=== PATIENT | female | born 1965 | race Caucasian/White ===

== ENCOUNTER → 2022-04-09 | Outpatient (CLI) | payer OTHER, SELFPAY ==
--- NOTE | 2022-04-09 07:59 | CT_ITS ---
STUDY: CT CHEST WITH CONTRAST REASON FOR EXAM: Female, 56 years old. Follow up treated right breast cancer -- prior infraclavicular adenopathy. Prior chemotherapy and radiation treatment and breast reduction surgery. RADIATION DOSAGE (If Supplied By Facility): CTDIvol = ( 13.55 ) mGy, DLP = ( 608.83 ) mGycm TECHNIQUE: Transaxial imaging was performed pre and post intravenous administration of IV 100mL Isovue-370. Multiplanar coronal and sagittal images were reformatted. Individualized dose optimization techniques were used for this CT. COMPARISON: Comparison is made with prior examination dated 08/13/2021. FINDINGS: CHEST Right breast skin thickening. Mild degree of increased markings in the peripheral aspect of the right middle lobe suggestive of possible post radiation fibrosis. Calcified granuloma in the posterior medial segment of the left lower lobe. There is no demonstrated pleural abnormality. Normal heart and pericardium. Normal mediastinum. Calcified right hilar lymph nodes. Normal unenhanced pulmonary arteries. Normal aorta arch and descending thoracic aorta. There are multi-level degenerative changes of the thoracic spine. Fatty infiltration of the liver. Calcified splenic granulomas. 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 Electronically Signed: Darryl Antonio MD at 10:55 EST ,
== END | disposition home or self-care (01) ==
PROVIDERS: PCP Internal Medicine; Visit Provider Student in an Organized Health Care Education/Training Program
DX: C50.911 Malignant neoplasm of unspecified site of right female breast (principal); C77.3 Secondary and unspecified malignant neoplasm of axilla and upper limb lymph nodes
CPT/HCPCS: 71260; Q9967

== ENCOUNTER 2022-11-13 10:00 | Outpatient (RCR) | payer OTHER, SELFPAY ==
--- NOTE | 2022-11-06 11:42 | HP.OTEVAL_ITS ---
Patient's Visit Information Visit Information Visit Information: YOVANI SAUCEDA is a 57 year old F, referred to Occupational Therapy by Dr. Pranay Sales DO, with a diagnosis of Malignant neoplasm r female breast, neoplasm axilla and upper limb. Date of Evaluation: 11/06/22 Occupational Therapist: Luz Elena Suh, SKYLA/Marlena, CHT Subjective Subjective: Last year complete December 2020 to Dec 2021 had radiation and chemo. Pt had 4 lymph nodes on right side between rib cage and posterior scap removed in October 2021. Pt just moved [place] with some of sons throughout. Pt tired and fatigued since treatment. Pt reports medication AP - has wiped and she was allergic to it Pt is R hand dominant. Pt reports some stiffness in R arm post treatment. 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 Shoulder: right 52/155 left 65/155 Strength Podiatric Foot And Ankle Specialist: R 65# L 61# Lymphedema (Circumferential Measure) MCP: right 18.5 cm left 17.5 cm Wrist: right 16 cm left 15 cm Lower forearm: right 18.5 cm left 17.5 cm Largest forearm: right 27.5 cm left 27 cm Elbow: right 27.5 cm left 26.5 cm Largest humerus: right 34 cm left 34.5 cm Axcillary: right 47 cm left 46 cm Upper Exremity Comments: Some tightness in RUE versus LUE latency stage ( risk only) Sensation Sensation Comments: denies changes Quick DASH-Disab of Arm,Shoulder& Hand Quick DASH Score: 13.6350 Goals Goal: Patient will demonstrate adequate knowledge of self-massage by the end of the second week.: Yes Goal: Patient will demonstrate adequate knowledge of skin care and precautions by the end of the first week.: Yes Goal: Patient will demonstrate adequate knowledge of therapeutic exercises by discharge.: Yes Rehabilitation General Assessment: Pt seen for OT lymphedema eval. Pt presents with some skin tightness in RUE with 1 cm-.5cm difference between right and left arm. Pt is not limited in ADL tasks at this time, though demonstrates decreased awareness of lymphedema. Pt will benefit from 1-2 more visits of skilled OT for increased understanding of self lymph massage and management of lymphedema. Therapist ed and provided handouts for Lymph stimi UE exercises and self-lymph massage, and OT POC. Pt verbalizes understanding and agrees to OT POC. Therapy session was directly supervised and doc. approved by Luz Elena Suh OTR/Marlena,CHT. Rehabilitation Potential: Excellent Anticipated Interventions Anticipated Interventions: Education re Diagnosis, Education re Life-long lymphedema Management, Education re Skin Care and Precautions, Education re Self Massage Techniques and Home Program Visit Plan Frequency: 1-2 more treatments General Plan: Review and ensure proper follow through of managing lymphedema TEXT: Thank you for the opportunity to evaluate your patient. For Medicare and Medicare HMO plans, please review the plan of care and approve it. It will need to be FAXED BACK to us at [phone] for Medicare purposes. Please let me know if there are questions or concerns regarding this plan of care. Physician Signature: Date:
--- NOTE | 2022-11-17 13:53 | HP.OTDCSUM ---
Discharge Summary D/C Summary: It has been my pleasure to treat YOVAIN SAUCEDA under orders from Dr. Pranay Sales DO, for the diagnosis of Malignant neoplasm r female breast, neoplasm axilla and upper limb for a total of 2 visit(s). Please see the following information for a summary of their discharge status. Overall Improvement % Improvement: 70 Objective Objective/Function: Right Edema (cm): MCP 19.5 Wrist 15.5 Lower forearm 19 Largest forearm 26 Elbow 25.5 Humerus 33.5 Axillary 47 pt verbalizes understanding of her HEP including signs and symptoms of lymphedema. pt agrees with D/C Goals Patient Goals: Learn to Manage Lymphedema and Learn how to Manage Lymphedema Goal: Patient will demonstrate adequate knowledge of self-massage by the end of the second week.: Yes Goal: Patient will demonstrate adequate knowledge of skin care and precautions by the end of the first week.: Yes Goal: Patient will demonstrate adequate knowledge of therapeutic exercises by discharge.: Yes Plan Plan: Will not continue to see pt at this time. Pt instructed to reach out if she had any questions regarding care. D/C Information Discharge Comments: Pt demo understanding of lymphedema signs/symptoms . pt demo understanding of lymph stimulation ex, and self manual lymph massage. pt agrees with D.C. d/c sentence: If there are questions or concerns regarding this patient's occupational therapy, please fell free to call me at [phone]. Thank you for the referral of this patient. Sincerely, Luz Elena Suh, OTR/L, CHT
== END 2022-11-13 19:00 | disposition home or self-care (01) ==
LOC: OT 10:00
PROVIDERS: PCP Internal Medicine; Referring Provider Student in an Organized Health Care Education/Training Program; Visit Provider Student in an Organized Health Care Education/Training Program
DX: C50.911 Malignant neoplasm of unspecified site of right female breast (principal); C77.3 Secondary and unspecified malignant neoplasm of axilla and upper limb lymph nodes
CPT/HCPCS: 96365; 96366; 96375; 97166; 97530; 99221; G0378

== ENCOUNTER 2024-06-04 07:46 | Emergency (ER) | payer OTHER, SELFPAY ==
[2024-06-04 07:47] VITALS: BP 159/86; PULSE 70; RESP 16; TEMP 36.6; O2SAT 99; BMI 39.5
--- NOTE | 2024-06-04 07:51 | EKG12_ITS ---
Test Reason : PALPS Blood Pressure : */* mmHG Vent. Rate : 69 BPM Atrial Rate : 69 BPM P-R Int : 138 ms QRS Dur : 90 ms QT Int : 428 ms P-R-T Axes : 63 46 82 degrees QTcB Int : 458 ms Normal sinus rhythm Nonspecific ST and T wave abnormality Abnormal ECG Confirmed by ALDO DE LA CRUZ, ELMER ([id number]), advertising editor JOSH FAUST ([id number]) on 06/08/2024 12:54:05 PM Referred By: MIKEY Confirmed By: ELMER CARLSON MD
--- NOTE | 2024-06-04 07:57 | ED.VIS.CHEST ---
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 Patient states that this has been going on for several months but feels like it has been increasing in intensity. She states that she did call her primary care physician about this and they stated that come back in 6 months and if things were not getting better they would put her on monitor. Patient states that she was going to work today and noted that she had the symptoms again and noted that they lasted a little bit longer than normal. She states that she has been taking her medication as prescribed. She states that she does not believe that her thyroid has been checked in a while. She states that her symptoms do worsen when she lies down. She states that she does not develop any chest pain or shortness of breath with this. [facility] Medical History Cellulitis Hypothyroid Hypercholesteremia Carcinoma of right breast metastatic to axillary lymph node Asthma Home Medications ?Medication ?Instructions ?Recorded ?Last Taken ?Type albuterol sulfate 90 mcg/actuation 2 puff inhalation Q6H PRN 08/07/21 Unknown History aerosol inhaler epinephrine 0.3 mg/0.3 mL 0.3 mg IM ONCE 08/07/21 Unknown History injection, auto-injector multivitamin 1 tab PO DAILY 08/07/21 Unknown History levothyroxine 100 mcg capsule 100 mcg PO DAILY 06/29/22 Unknown History Allergy/AdvReac Type Severity Reaction Status Date / Time carboplatin Allergy Severe Anaphylaxis Verified 06/04/24 07:49 cranberry Allergy Severe Anaphylaxis Verified 06/04/24 07:49 latex Allergy Severe Itching Verified 06/04/24 07:49 Family History Mother Pancreatic cancer, Onset Age: 73 Father Prostate cancer, Onset Age: 74 Grandmother Esophageal cancer, Onset Age: 71 Grandfather Colon cancer, Onset Age: 59 maternal Grandmother Cancer, Onset Age: 67 possibly Hodgkins Unknown Breast cancer half niece Surgical History History of right breast biopsy History of bunionectomy History of hysterectomy History of appendectomy History of bilateral breast reduction surgery History of lymph node biopsy Social History household members: spouse current occupational status: unemployed Smoking Status: Never smoker alcohol intake: never substance use type: does not use caffeine: Yes Type: carbonated beverages Number of servings: 1 ROS ROS ED ROS Narrative Constitutional: Denies fevers, chills, headaches, lightness, dizziness Eyes: Denies change in vision double vision blurry vision Cardiovascular: Complains of palpitations as noted above denies chest pain Respiratory: Denies cough or wheezing shortness of breath Abdomen: Denies abdominal pain nausea vomit diarrhea : Denies any urinary symptoms Neurological: Denies numbness, weakness, tingling Musculoskeletal: Denies back pain Skin: Denies rashes or lesions EXAM Physical Exam Narrative Exam Narrative: General: Patient was lying in bed rest comfortably did not appear to be in acute distress Head: Atraumatic, normocephalic Eyes: PERRL bilaterally, EOMI bilateral, no conjunctival injection noted Neck: Soft, supple and trachea midline Cardiovascular: Regular rate and rhythm no murmurs gallops rubs noted Respiratory: Clear to auscultation bilaterally Abdomen: Soft, nondistended, nontender to palpation Extremities: +5/5 strength noted in the bilateral upper and lower extremity, radial pulse +2/4 in the bilateral extremities, no pedal edema on exam, Neurological: Patient following commands knew that she was at [facility] years 2024 Skin: Warm, dry, intact no rashes or lesions noted Const Vital Signs: 06/04/24 07:47 06/04/24 07:51 06/04/24 07:58 Temperature 98 F Temperature Source Oral Pulse Rate 70 Respiratory Rate 16 Respiratory Effort Normal Non-Labored Blood Pressure 159/86 H Blood Pressure Mean 110 Pulse Ox 99 Oxygen Delivery Method Room Air Room Air 06/04/24 10:15 06/04/24 11:18 Temperature Temperature Source Pulse Rate 65 56 L Respiratory Rate 18 15 Respiratory Effort Blood Pressure 138/80 H 135/82 H Blood Pressure Mean 99 99 Pulse Ox 97 96 Oxygen Delivery Method Room Air Room Air MDM MDM MDM Narrative Medical decision making narrative: Patient is a 58-year-old female who presented to the emergency department the chief complaint of palpitations. On the differential diagnosis includes but limited to cardiac arrhythmia, electrolyte abnormality, hyperthyroidism. Once workup is obtained reviewed she will be reevaluated. Patient's EKG was reviewed and showed sinus rhythm with a rate of 69 bpm MO interval was 138, QTc of 458. Patient's CBC reviewed and showed no evidence leukocytosis white blood count normal 5.9, hemoglobin 13, sodium normal 137, Tessman 3.9, creatinine was 0.87. Patient's troponin was less than 6 with a delta troponin obtained at 7. Patient TSH normal at 2.36 with a free T4 and T3 of 1.60 and 2.3 respectively. Patient's chest x-ray reviewed by myself by radiology showed no acute cardiopulmonary processes. On reevaluation patient she is feeling better she would like to go home at this point in time. Patient will be given a Holter monitor and she was advised to follow-up with her primary care physician outpatient setting. She is advised return with worsening symptoms or concerns. Once again this has been going on for months now. Lab Data Labs: Laboratory Results - last 24 hr 06/04/24 06/04/24 08:12 10:15 WBC 5.9 RBC 4.50 Hgb 13.0 Hct 39.6 MCV 88.0 MCH 28.9 MCHC 32.8 RDW Std Deviation 42.7 RDW Coeff of Radha 13.1 Plt Count MPV 10.8 Immature Gran % (Auto) 0.300 Neut % (Auto) 67.1 Lymph % (Auto) 22.2 Elliott % (Auto) 7.0 Eos % (Auto) 2.4 Baso % (Auto) 1.0 Absolute Neuts (auto) 3.9 Absolute Lymphs (auto) 1.30 Nucleated RBC % 0 Platelet Estimate SLT DEC Sodium 137 Potassium 3.9 Chloride 103 Carbon Dioxide 20.8 L Anion Gap 13 BUN 14 Creatinine 0.87 Estim Creat Clear Calc 81.02 Est GFR (MDRD) Non-Af 78 BUN/Creatinine Ratio 15.8 Glucose 116 H Calcium 9.3 Troponin T High Sens < 6 Troponin T Hi Sens 2 Hr 7 TSH 2.360 Free T4 1.60 H Free T3 pg/dL 2.3 Radiography Diagnostic Testing: Clinical Impression(s) from Imaging Studies Chest X-Ray 06/04/24 08:24 IMPRESSION: No radiographic evidence of acute cardiopulmonary disease. Reading Location: [address] Discharge Plan Triage Chief Complaint: Palpitations ED Provider: Daniel De La Garza Dx/Rx/DC Orders Clinical Impression: Heart palpitations Prescriptions: No Action multivitamin Tablet 1 tab PO DAILY albuterol sulfate 90 mcg/actuation HFA aerosol inhaler 2 puff inhalation Q6H PRN epinephrine 0.3 mg/0.3 mL auto-injector 0.3 mg IM ONCE Rx Instructions: as a single dose; may repeat once levothyroxine 100 mcg capsule 100 mcg PO DAILY Primary Care Provider: Rocio Li Referrals: Rocio Li MD [Primary Care Provider] - Activity Restrictions/Additional Instructions: Wear Holter monitor as prescribed. Follow-up your doctor in outpatient setting. Return with worsening symptoms or concerns. Your heart enzymes were normal your chest x-ray was normal and your thyroid was normal. Print Language: Romanian Disposition Disposition: Home, Self Care
[2024-06-04 08:19] LABS: Absolute Neutrophil Count 3.9 X10^3/uL (2.0-7.7); Basophil# 0.06 X10^3/uL; Eosinophil# 0.14 X10^3/uL; Eosinophils% 2.4 % (0-5); Hematocrit 39.6 % (37-47); Lymphocyte % 22.2 % (19-41); Mean Corp Hgb Conc 32.8 g/dL (32-36); Mean Corpuscular Hgb 28.9 pg (27.0-32.0); Mean Platelet Vol. 10.8 fl (6.2-12.0); Monocyte# 0.41 X10^3/uL; NRBC Flagged by Analyzer 0 % (0-5); Neutrophil # 3.92 X10^3/uL (2.7-7.7); Neutrophil % 67.1 % (47-70); POSITIVE COUNT YES; RBC Distribution Width CV 13.1 % (11.6-14.6); RBC Distribution Width SD 42.7 fl (35.1-43.9); White Blood Count 5.9 K/mm3 (4.4-11.0)
--- NOTE | 2024-06-04 08:24 | RAD_ITS ---
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 TECHNIQUE: PA and lateral views of the chest obtained. FINDINGS: Right breast surgical clips are noted. The cardiac silhouette is not enlarged. No evidence of pulmonary edema. No pulmonary parenchymal consolidative opacities. No pneumothorax or significant pleural effusion. [id number] thoracic spine degenerative changes are seen, also involving the visualized lower cervical spine. No acute osseous abnormality is identified. RAD/Chest PA and Lateral IMPRESSION: No radiographic evidence of acute cardiopulmonary disease. Reading Location: [id number]
[2024-06-04 08:43] LABS: Free T3 2.3 pg/mL (2.18-3.98); Troponin T High Sensitivity < 6 ng/L (<=14)
[2024-06-04 08:45] LABS: Anion Gap 13 (5-15); BUN 14 mg/dL (4-19); BUN/Creat Ratio 15.8 RATIO (10-20); Calcium,Total 9.3 mg/dL (7.6-11.0); Carbon Dioxide 20.8 mmol/L (21.0-32.0); Chloride 103 mmol/L (98-108); Creatinine, Serum 0.87 mg/dL (0.70-1.20); Differential Indicated SCAN CRITERIA MET; EST Glomerular Filtration Rate 78 (>60); Estimated Creatinine Clearance 81.02 ml/min (50-250); Glucose 116 mg/dL (70-99); Potassium 3.9 mmol/L (3.3-5.1); Sodium Level 137 mmol/L (133-145)
[2024-06-04 08:46] LABS: Platelet Estimate SLT DEC (ADEQ)
[2024-06-04 10:15] VITALS: BP 138/80; PULSE 65; RESP 18; O2SAT 97
[2024-06-04 10:45] LABS: Troponin T High Sens 2 HR 7 ng/L (<=14)
[2024-06-04 11:18] VITALS: BP 135/82; PULSE 56; RESP 15; O2SAT 96
[2024-06-04 11:33] VITALS: BP 131/76; PULSE 60; RESP 15; TEMP 36.6; O2SAT 97
== END 2024-06-04 12:01 | disposition home or self-care (01) ==
PROVIDERS: Emergency Provider Emergency Medicine; PCP Internal Medicine; Visit Provider Emergency Medicine
DX: R00.2 Palpitations (principal); E78.00 Pure hypercholesterolemia, unspecified; E03.9 Hypothyroidism, unspecified; Z90.710 Acquired absence of both cervix and uterus; J45.909 Unspecified asthma, uncomplicated; Z85.3 Personal history of malignant neoplasm of breast
CPT/HCPCS: 71046; 80048; 84439; 84443; 84481; 84484; 85025; 93005; 93225; 93226; 99283

== ENCOUNTER → 2024-06-04 | Outpatient (CLI) | payer OTHER, SELFPAY | END | disposition home or self-care (01) | LOC: CVS 11:29 | PROVIDERS: PCP Internal Medicine; Visit Provider Emergency Medicine | DX: R00.2 Palpitations (principal) | CPT/HCPCS: 93225; 93226 ==

== ENCOUNTER 2024-06-20 13:38 | Emergency (ER) | payer OTHER, SELFPAY ==
[2024-06-20 13:39] VITALS: BP 164/76; PULSE 65; RESP 16; TEMP 36.4; O2SAT 98; BMI 39.4
--- NOTE | 2024-06-20 14:12 | EX.ED.DYSGE1 ---
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 Asthma Home Medications ?Medication ?Instructions ?Recorded ?Last Taken ?Type albuterol sulfate 90 mcg/actuation 2 puff inhalation Q6H PRN 08/07/21 Unknown History aerosol inhaler epinephrine 0.3 mg/0.3 mL 0.3 mg IM ONCE 08/07/21 Unknown History injection, auto-injector multivitamin 1 tab PO DAILY 08/07/21 Unknown History levothyroxine 100 mcg capsule 100 mcg PO DAILY 06/29/22 Unknown History Allergy/AdvReac Type Severity Reaction Status Date / Time carboplatin Allergy Severe Anaphylaxis Verified 06/04/24 07:49 cranberry Allergy Severe Anaphylaxis Verified 06/04/24 07:49 latex Allergy Severe Itching Verified 06/04/24 07:49 Family History Mother Pancreatic cancer, Onset Age: 73 Father Prostate cancer, Onset Age: 74 Grandmother Esophageal cancer, Onset Age: 71 Grandfather Colon cancer, Onset Age: 59 maternal Grandmother Cancer, Onset Age: 67 possibly Hodgkins Unknown Breast cancer half niece Surgical History History of right breast biopsy History of bunionectomy History of hysterectomy History of appendectomy History of bilateral breast reduction surgery History of lymph node biopsy Social History household members: spouse current occupational status: unemployed Smoking Status: Never smoker alcohol intake: never substance use type: does not use caffeine: Yes Type: carbonated beverages Number of servings: 1 EXAM Physical Exam Const Vital Signs: 06/20/24 13:39 06/20/24 15:38 06/20/24 17:00 Temperature 97.5 F L Temperature Source Oral Pulse Rate 65 64 61 Respiratory Rate 16 18 20 H Blood Pressure 164/76 H 117/78 119/78 Blood Pressure Mean 105 91 91 Pulse Ox 98 98 99 Oxygen Delivery Method Room Air Room Air Room Air 06/20/24 18:25 Temperature 98.7 F Temperature Source Pulse Rate 61 Respiratory Rate 18 Blood Pressure 119/78 Blood Pressure Mean 91 Pulse Ox 99 Oxygen Delivery [place] [facility] [place] Medical decision making narrative: HISTORY OF PRESENT ILLNESS: Chief complaint: Dizziness 58-year-old female presents with concern for dizziness. Notes has been going on all day. She further states she has had months of intermittent dizziness. No provoking event endorsed. Notes last several weeks has been getting worse. Today especially. 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 She did not actually pass out. Denies any prodromal headache, chest pain, shortness of breath, palpitations. She notes she did have a cardiac event monitor recently which showed ectopic beats. REVIEW OF SYSTEMS: Pertinent positives: Dizziness Pertinent negatives: Chest pain PHYSICAL EXAM: Nursing triage notes reviewed, Vital signs reviewed Constitutional: please see [facility] HENT: MMM Eyes: Pupils equal round and reactive to light, Extraocular muscles intact Neck: No stridor, no JVD, full neck ROM Lungs: Clear to auscultation, No wheezing or rales. No increased work of breathing, no conversational dyspnea, no accessory muscle use, no nasal flaring. No respiratory distress noted Heart: Regular rate and rhythm, No murmurs, No rubs and No gallops, 2+ distal pulses (radial, femoral, posterior tibial) in all extremities Abdomen: Soft, there is no tenderness, rigidity, rebound or guarding, no obvious peritoneal signs, no palpable pulsatile abdominal masses, no auscultated abdominal bruit : No CVAT Extremities: No edema Neuro: No new focal neurological deficits, cranial nerves II through XII intact, 5/5 strength in all present extremities. Intact sensation to light touch in all present extremities, 2+ reflexes bilateral patella tendons. Skin: No rash or lesions noted MEDICAL DECISION MAKING: Chief Complaint: please see HPI External records reviewed: Reviewed prior imaging studies. Reviewed Holter monitor report from May 2024 which showed 16 supraventricular ectopic beats. No ventricular ectopic beats. The patient kept a diary which was correlated to normal sinus rhythm or sinus tachycardia Factors affecting care: hypothyroidism, breast cancer Social determinants of health: none History obtained from others: none Consults: none [facility] Narrative: The patient was initially hemodynamically stable, afebrile and nontoxic-appearing. Exam without focal cardiopulmonary abnormalities. I considered the following differential diagnosis: ACS, arrhythmia, CVA, anemia, electrolyte disturbance, dehydration, vertigo I obtained a broad lab and imaging workup to further elucidate the etiology of the patient's complaint ALL IMAGES (IF OBTAINED) HAVE BEEN PERSONALLY REVIEWED AND INTERPRETED BY MYSELF. Normal sinus rhythm rate of 65, normal axis, normal intervals, no STEMI CBC without leukocytosis, severe anemia, no thrombocytopenia. TSH within normal limits, free T3 within normal limits suggesting no significant thyroid pathology. T4 slightly elevated High-sensitivity troponin is negative, no evidence of myocardial ischemia CT scan of the brain shows no acute intracranial normality I have personally reviewed the patient's chest x-ray. Chest x-ray is unremarkable for pulmonary edema, pneumothorax, pneumonia or focal cardiopulmonary abnormality. CMP without evidence of acute kidney injury, significant electrolyte abnormality, anion gap to suggest end organ hypo-perfusion, no evidence of metabolic acidosis with a normal bicarbonate, no evidence of hepatobiliary obstructive pathology. I have personally reviewed the patient's chest x-ray. Chest x-ray is unremarkable for pulmonary edema, pneumothorax, pneumonia or focal cardiopulmonary abnormality. The synthesis of the patient's history, physical exam, labs images suggest no acute life or limb threat etiology. She is likely suffering from supraventricular ectopic beats versus sinus tachycardia based on her prior Holter monitor report. Encouraged her to follow with her primary care physician/cardiology for further outpatient evaluation. Encouraged increased p.o. intake. Encouraged decreasing stimulants. The patient and/or family, caregivers express understanding. The patient and/or family, caregivers agrees with the plan. Shared decision making: I will have a discussion with the patient and or visitors regarding risk/benefits of further testing or admission. They will be made aware of of the risk/benefits inherent in this decision they will be given the opportunity to voice understanding. Total critical care time today provided was at least 0 minutes. This excludes separately billable procedures. Critical care time (if documented) is secondary to the patient having high probability of clinically significant/life threatening deterioration in the patient's condition which required my urgent intervention. Impression: 1. Dizziness 2. Palpitations Dispo: Discharge home This note was generated with [employer] dictation software. It may contain incorrect words, spelling, and punctuation that were not noted in review of the chart prior to signing. Lab Data Labs: Laboratory Results - last 24 hr 06/20/24 06/20/24 06/20/24 14:30 14:50 16:30 WBC 6.7 RBC 4.75 Hgb 13.9 Hct 41.3 MCV 86.9 MCH 29.3 MCHC 33.7 RDW Std Deviation 41.5 RDW Coeff of Radha 13.2 Plt Count 237 MPV 9.7 Sodium 138 Potassium 3.9 Chloride 102 Carbon Dioxide 25.4 Anion Gap 11 BUN 14 Creatinine 0.72 Estim Creat Clear Calc 97.78 Est GFR (MDRD) Non-Af 97 BUN/Creatinine Ratio 19.1 Glucose 94 Calcium 9.7 Total Bilirubin 0.32 AST 21 ALT 17 Alkaline Phosphatase 74 Troponin T High Sens 6 Total Protein 7.3 Albumin 4.3 Globulin 3.0 Albumin/Globulin Ratio 1.4 TSH 1.450 Free T4 1.50 H Free T3 pg/dL 2.4 Urine Color Yellow Urine Clarity Clear Urine pH 6.5 Ur Specific [place] 1.010 Urine Protein Negative Urine Glucose (UA) Normal Urine Ketones Negative Urine Occult Blood Negative Urine Nitrite Negative Urine Bilirubin Negative Urine Urobilinogen Normal Ur Leukocyte Esterase 25 H Urine RBC 0 SEEN Urine WBC 0-5 SEEN Ur Squamous Epith Cells 0-5 SEEN Urine Bacteria RARE Urine Mucus 0 SEEN Radiography Diagnostic Testing: Clinical Impression(s) from Imaging Studies Brain CT 06/20/24 14:36 IMPRESSION: No acute intracranial abnormality. Reading Location: [facility] Chest X-Ray 06/20/24 14:36 IMPRESSION: No Acute Findings. Reading Location: [facility] Discharge Plan Triage Chief Complaint: Dizziness ED Provider: Nikolay Briggs Dx/Rx/DC Orders Instructions: ED Dizziness, Uncertain Cause, ED Tachycardia: PAT Prescriptions: No Action multivitamin Tablet 1 tab PO DAILY albuterol sulfate 90 mcg/actuation HFA aerosol inhaler 2 puff inhalation Q6H PRN epinephrine 0.3 mg/0.3 mL auto-injector 0.3 mg IM ONCE Rx Instructions: as a single dose; may repeat once levothyroxine 100 mcg capsule 100 mcg PO DAILY Primary Care Provider: Rocio Li Referrals: Rocio Li MD [Primary Care Provider] - Activity Restrictions/Additional Instructions: Thank you for trusting us with your care today! Your labs images were reassuring. Specifically no sign of damage to your heart, septic electrolyte abnormalities, thyroid dysfunction, lung abnormalities, abnormalities of your brain, significant anemia, dehydration, liver abnormalities, urinary abnormalities. Your presentation is likely secondary to paroxysmal atrial tachycardia. Please see attached information. Please take Tylenol (2 pills, 650 mg), ibuprofen (2 pills, 400 mg) every 6 hours as needed for pain and fever control. Please return to the emergency department if your symptoms change or worsen. Please follow with your primary care physician/cardiology for further outpatient evaluation and management. Print Language: Fijian Disposition Disposition: Home, Self Care Discharge Date/Time: 06/20/24 18:26
--- NOTE | 2024-06-20 14:36 | CT_ITS ---
PROCEDURE: BRAIN/HEAD WITHOUT CONTRAST 06/20/2024 REASON FOR EXAM: DIZZINESS TECHNIQUE: Head CT without intravenous contrast. Coronal and Sagittal reconstruction series were provided. One or more dose reduction techniques were used (e.g., Automated exposure control, adjustment of the mA and/or kV according to patient size, use of iterative reconstruction technique. COMPARISON: None FINDINGS: FINDINGS: * ACUTE: No acute infarct or hemorrhage. No mass effect or herniation. * BRAIN PARENCHYMA: Signal intensities are within normal limits for age. * VENTRICLES/EXTRA-AXIAL SPACES: No hydrocephalus or extra-axial fluid collections. * EXTRACRANIAL STRUCTURES: Visualized osseous structures are normal. Soft tissues are normal. CT/Brain/Head without Contrast IMPRESSION: No acute intracranial abnormality. [facility]
--- NOTE | 2024-06-20 14:36 | RAD_ITS ---
PROCEDURE: CHEST 1 VIEW (PORTABLE) 06/20/2024 REASON FOR EXAM: DIZZINESS TECHNIQUE: Frontal view of the chest. COMPARISON: Chest radiograph 06/04/[address] chest 04/09/2022 FINDINGS: Hardware: None Heart: Cardiac and mediastinal contours are stable. Lungs: No focal consolidation. No pneumothorax. No pleural effusion. Bones: The bones are unremarkable. Other:
--- NOTE | 2024-06-20 14:52 | EKG12_ITS ---
Test Reason : CP/DIZZY Blood Pressure : */* mmHG Vent. Rate : 65 BPM Atrial Rate : 65 BPM P-R Int : 136 ms QRS Dur : 90 ms QT Int : 434 ms P-R-T Axes : 52 36 63 degrees QTcB Int : 451 ms Normal sinus rhythm Nonspecific T wave abnormality Abnormal ECG Confirmed by ALDO DE LA CRUZ, ELMER ([id number]), book editor JOSH FAUST ([id number]) on 06/22/2024 8:33:48 AM Referred By: GABI Confirmed By: ELMER CARLSON MD
[2024-06-20] MEDS: 0.9% Normal Saline (500mL Bag) 500 ML 1000 ML IV (14:59)
[2024-06-20 15:03] LABS: Hematocrit 41.3 % (37-47); Hemoglobin 13.9 g/dL (12.0-15.0); Mean Corp Hgb Conc 33.7 g/dL (32-36); Mean Corpuscular Hgb 29.3 pg (27.0-32.0); Mean Corpuscular Volume 86.9 fL (81-99); Mean Platelet Vol. 9.7 fl (6.2-12.0); Platelet Count 237 K/mm3 (150-450); RBC Distribution Width CV 13.2 % (11.6-14.6); RBC Distribution Width SD 41.5 fl (35.1-43.9); Red Blood Count 4.75 M/mm3 (4.2-5.4); White Blood Count 6.7 K/mm3 (4.4-11.0)
[2024-06-20 15:38] VITALS: BP 117/78; PULSE 64; RESP 18; O2SAT 98
[2024-06-20 15:56] LABS: ALB/GLOB Ratio 1.4 RATIO (0.9-2.4); AST(SGOT) 21 U/L (<=31); Alanine Aminotransfer ALT/SGPT 17 U/L (<=34); Albumin, Serum 4.3 g/dL (3.5-5.0); Alkaline Phosphatase 74 U/L (35-104); Anion Gap 11 (5-15); BUN 14 mg/dL (4-19); BUN/Creat Ratio 19.1 RATIO (10-20); Calcium,Total 9.7 mg/dL (7.6-11.0); Carbon Dioxide 25.4 mmol/L (21.0-32.0); Chloride 102 mmol/L (98-108); Creatinine, Serum 0.72 mg/dL (0.70-1.20); EST Glomerular Filtration Rate 97 (>60); Estimated Creatinine Clearance 97.78 ml/min (50-250); Glucose 94 mg/dL (70-99); Potassium 3.9 mmol/L (3.3-5.1); Protein, Total 7.3 g/dL (5.9-8.4); Sodium Level 138 mmol/L (133-145); Total Bilirubin 0.32 mg/dL (0.00-1.30)
[2024-06-20 16:05] LABS: Free T3 2.4 pg/mL (2.18-3.98); Troponin T High Sensitivity 6 ng/L (<=14)
[2024-06-20 16:38] LABS: Mucous, Urine 0 SEEN /hpf (<or=2+); Red Blood Cells-Urine 0 SEEN /hpf (0-5)
[2024-06-20 16:42] LABS: Color, Urine Yellow (Yellow); Glucose, Dipstick Normal (Normal); Ketone-Dipstick Negative (Negative); Leukocyte Esterase-Dipstick 25 /ul (Negative); Nitrite-Dipstick Negative (Negative); Occult Blood-Urine Negative /ul (Negative); Protein-Dipstick Negative (Negative); Urine Bilirubin Dipstick Negative (Negative); Urine Clarity Clear (Clear); Urine Urobilinogen Normal (Normal); Urine pH 6.5 (5.0 - 8.0)
[2024-06-20 16:47] LABS: Squamous Epithelial Cells - UA 0-5 SEEN /hpf (5-10); White Blood Cells 0-5 SEEN /hpf (0-5)
[2024-06-20 16:48] LABS: Bacteria RARE /hpf (None Seen)
[2024-06-20 17:00] VITALS: BP 119/78; PULSE 61; RESP 20; O2SAT 99
[2024-06-20 18:25] VITALS: BP 119/78; PULSE 61; RESP 18; TEMP 37.1; O2SAT 99
== END 2024-06-20 18:26 | disposition home or self-care (01) ==
PROVIDERS: Emergency Provider Emergency Medicine; PCP Internal Medicine; Visit Provider Emergency Medicine
DX: R42 Dizziness and giddiness (principal); R00.2 Palpitations; E78.00 Pure hypercholesterolemia, unspecified; E03.9 Hypothyroidism, unspecified; Z85.3 Personal history of malignant neoplasm of breast; J45.909 Unspecified asthma, uncomplicated; Z90.710 Acquired absence of both cervix and uterus
CPT/HCPCS: 70450; 71045; 80053; 81001; 84439; 84443; 84481; 84484; 85027; 93005; 99284; A4216

== ENCOUNTER → 2024-10-18 | Outpatient (CLI) | payer OTHER, SELFPAY ==
--- NOTE | 2024-10-18 12:47 | CT_ITS ---
PROCEDURE: LIMITED CHEST CT CARDIAC ONLY 10/18/2024 REASON FOR EXAM: ABNORMAL ECG TECHNIQUE: LIMITED CHEST CT CARDIAC ONLY Coronal and Sagittal reconstruction series were provided. CONTRAST: Isovue-300 VOLUME: 77 mL One or more dose reduction techniques were used (e.g., Automated exposure control, adjustment of the mA and/or kV according to patient size, use of iterative reconstruction technique). RADIATION DOSE SUMMARY: CTDlvol: 27 mGy DLP: 1543.9 mGycm COMPARISON: None FINDINGS: Coronary artery calcification. The heart is nonenlarged. No evidence of pericardial thickening. Calcified right hilar lymph nodes. Calcified granulomas in the left lower lobe. CT/Limited Chest CT Cardiac Only IMPRESSION: Coronary artery calcification. Reading Location: [id number]
[2024-10-18 13:12] VITALS: BP 168/67; PULSE 55; RESP 18; O2SAT 97; BMI 38.0
[2024-10-18] MEDS: 0.9% Saline Lock 10 ML Syringe IV (13:34)
[2024-10-18 13:35] VITALS: BP 129/71; PULSE 65
[2024-10-18] MEDS: Nitroglycerin SL (ED/IMG/CATH) 0.4 MG TABLET SL (13:35)
[2024-10-18 13:40] VITALS: BP 127/61; PULSE 65; RESP 18; O2SAT 99
--- NOTE | 2024-10-20 06:56 | CCTA.WCONT ---
CCTA w/Cont Coronary Arteries Date of Study:: 10/18/24 DANIELS Coronary Calcium Scoring: High-resolution Computed Tomographic imaging of the chest was performed on [10/18/24 ], with particular attention paid to the coronary arteries. Intravenous contrast agent was administered per protocol and images reconstructed and displayed. LEFT MAIN CORONARY ARTERY: Normal arises from the left coronary cusp [] LEFT ANTERIOR DESCENDING CORONARY ARTERY: Arises from the left main coronary artery and has focal calcification noted in the proximal and mid region which appears to be nonocclusive with probably 30% stenosis present. [] LEFT CIRCUMFLEX CORONARY ARTERY: Nondominant vessel with focal proximal calcification and a nonocclusive manner present. [] RIGHT CORONARY ARTERY: Dominant vessel with no significant atherosclerotic plaque noted CORONARY CALCIUM SCORE: [] Findings Coronary Artery Left Main (LM): 0 Left Anterior Descending (LAD): 96 Left Circumflex (LCX): 76 Right Coronary Artery (RCA): 0 Total Agatston Score: 172 Percentile Ranking: Greater than 90th percentile Calcium Scoring Interpretation: Different methods to categorize the overall amount of coronary plaque. Overall amount CAC SIS Visual of coronary plaque P1 Mild -100 <2 1-2 vessels with mild amount of plaque P2 Moderate 101-300 3-4 1-2 vessels with moderate amount, 3 vessels with mild amount of plaque P3 Severe 301-999 5-7 3 vessels with moderate amount, 1 vessel with severe amount of plaque P4 Extensive >1000 >8 2-3 vessels with severe amount of plaque Calcium Score: Mild: 1-2 vessels w/mild amount of plaque Conclusion: Premature coronary artery disease with nonocclusive plaque noted in the LAD and circumflex artery distributions.
== END | disposition home or self-care (01) ==
LOC: CT 12:44
PROVIDERS: PCP Internal Medicine; Referring Provider Internal Medicine Cardiovascular Disease; Visit Provider Internal Medicine Cardiovascular Disease
DX: R94.31 Abnormal electrocardiogram [ECG] [EKG] (principal); R06.09 Other forms of dyspnea; R00.2 Palpitations
CPT/HCPCS: 75571; 75574; 76380; Q9967; A4216